=== PATIENT | female | born 1950 | race Caucasian/White ===

== ENCOUNTER 2024-09-18 13:07 | Observation (INO) | payer MEDICARE, OTHER ==
[~2024-09-18] VITALS: Ht 170.2 cm; Wt 73.9 kg
[2024-09-18 13:07] VITALS: TEMP 97.4
[~2024-09-18 13:07] MED LIST: DIOVAN HCT 3201 EAC1 PO; IMITREX100 MG PO; JINTELI 1 MG-51 EACH PO; LANSOPRAZOLE30 M1 PO; TOPIRAMATE50 MG PO; ZOLPIDEM TARTRA10 MG PO
[2024-09-18 13:25] LABS: BASOPHILS % 0.1 % (0.0-1.0); EOSINOPHILS % 1.2 % (0.0-6.0); LYMPHOCYTES % 27.6 % (18.0-39.1); MONOCYTES % 6.3 % (4.4-11.3); NEUTROPHILS % 64.5 % (38.7-80.0); RED CELL DISTRIBUTION WIDTH 12.5 % (11.7-14.4)
[2024-09-18] MEDS ORDERED: ASPIRIN 81 MG CHEW TAB PO ONE (13:30)
[2024-09-18] MEDS ORDERED: SODIUM CHLORIDE FLUSH 10 ML SYR IV PRN (13:30)
[2024-09-18 13:44] LABS: EST GLOMERULAR FILTRATION RATE 64.0 ML/MIN (>=60)
[2024-09-18] MEDS: ONDANSETRON HCL INJ 2MG/ML 2ML 2 MG/ML VIAL IV STA (13:44)
[2024-09-18] MEDS: ASPIRIN 81 MG CHEW TAB PO ONE (13:44)
[2024-09-18] MEDS: HYDRALAZINE HCL 20 MG/ML VIAL IV STA (14:11)
[2024-09-18] MEDS ORDERED: SODIUM CHLORIDE FLUSH 10 ML SYR INJ PRN (15:00)
[2024-09-18 15:30] VITALS: PULSE 71; RESP 17
[2024-09-18 16:35] VITALS: BP 115/59; PULSE 66; RESP 18; TEMP 98.1; O2SAT 100
[2024-09-18] MEDS ORDERED: MYRBETRIQ50 MG PO (19:41)
[2024-09-18] MEDS ORDERED: ACETAMINOPHEN-1 EAC3 PO (19:41)
[2024-09-18] MEDS ORDERED: DICYCLOMINE HCL10 MG PO (19:41)
[2024-09-18] MEDS ORDERED: METHOCARBAMOL750 MG PO (19:41)
[2024-09-18] MEDS ORDERED: ZOLPIDEM TARTRAT5 MG PO (19:41)
[2024-09-18] MEDS ORDERED: RIZATRIPTAN10 M1 PO (19:41)
[2024-09-18] MEDS ORDERED: THERACRAN650 MG PO (19:41)
[2024-09-18] MEDS ORDERED: TOPIRAMATE100 MG PO (19:41)
[2024-09-18] MEDS ORDERED: LOSARTAN POTAS100 MG PO (19:41)
[2024-09-18] MEDS ORDERED: LYRICA50 MG PO (19:41)
[2024-09-18] MEDS ORDERED: OMEPRAZOLE40 MG PO (19:41)
[2024-09-18 20:00] VITALS: BP 124/81; PULSE 74; RESP 18; TEMP 97.2; O2SAT 97
[2024-09-18] MEDS ORDERED: ACETAMINOPHEN/CODEINE 300MG - 30MG TAB PO PRN (20:15)
[2024-09-18] MEDS: ZOLPIDEM TARTRATE 5 MG TAB PO SCH (21:42)
[2024-09-19] VITALS: BP 109/77; PULSE 63; RESP 16; TEMP 97.2; O2SAT 97
[2024-09-19 06:08] VITALS: BP 100/67; PULSE 63; RESP 16; TEMP 97.2; O2SAT 97
[2024-09-19 06:52] LABS: BASOPHILS % 0.3 % (0.0-1.0); EOSINOPHILS % 2.7 % (0.0-6.0); LYMPHOCYTES % 36.6 % (18.0-39.1); MONOCYTES % 9.0 % (4.4-11.3); NEUTROPHILS % 51.1 % (38.7-80.0); RED CELL DISTRIBUTION WIDTH 12.8 % (11.7-14.4)
[2024-09-19 07:08] LABS: EST GLOMERULAR FILTRATION RATE 75.0 ML/MIN (>=60)
[2024-09-19 08:00] VITALS: BP 112/71; PULSE 64; RESP 17; TEMP 98; O2SAT 100
[2024-09-19 08:15] VITALS: BP 112/71; PULSE 67; RESP 17; TEMP 98; O2SAT 100
[2024-09-19] MEDS: NON-FORMULARY MEDICATION (Mirabegron (Myrbetriq) 50 MG) PO SCH (09:00)
[2024-09-19] MEDS: TOPIRAMATE 100 MG TAB PO SCH (09:53)
[2024-09-19] MEDS: PANTOPRAZOLE SOD 40 MG TABEC PO SCH (09:53)
[2024-09-19] MEDS: DICYCLOMINE HCL 10 MG CAP PO SCH (09:53)
[2024-09-19] MEDS: METHOCARBAMOL 500 MG TAB PO SCH (09:53)
[2024-09-19] MEDS: PREGABALIN 50 MG CAP PO SCH (09:53)
[2024-09-19] MEDS: ASPIRIN 81 MG ENTERIC COATED PO SCH (09:54)
[2024-09-19] MEDS: LOSARTAN POTASSIUM 100 MG TAB PO SCH (09:54)
[2024-09-19] MEDS: ONDANSETRON HCL INJ 2MG/ML 2ML 2 MG/ML VIAL IV PRN (09:57)
[2024-09-19 12:00] VITALS: BP 130/80; PULSE 75; RESP 18; TEMP 97.7; O2SAT 100
[2024-09-19 15:30] VITALS: BP 115/94; PULSE 76; RESP 18; TEMP 97.9; O2SAT 98
== END 2024-09-19 15:20 | disposition home or self-care (01) ==
LOC: ER 13:20 → ERHOLD 14:59 → MED/SURG2 16:53
PROVIDERS: ADMIT Internal Medicine; ATTEND Internal Medicine
DX: K21.00 Gastro-esophageal reflux disease with esophagitis, without bleeding (principal); R07.9 Chest pain, unspecified; I10 Essential (primary) hypertension; E78.5 Hyperlipidemia, unspecified; G47.00 Insomnia, unspecified; G43.909 Migraine, unspecified, not intractable, without status migrainosus; Z82.49 Family history of ischemic heart disease and other diseases of the circulatory system; Z80.3 Family history of malignant neoplasm of breast
CPT/HCPCS: 36415 ×2; 71045; 80053 ×2; 82550 ×2; 83880; 84484 ×2; 85025 ×2; 93005; 94760; 99284; G0378 ×2; J0360; J2405 ×2; J2470